=== PATIENT | male | born 1995 | race Caucasian/White ===

== ENCOUNTER 2018-02-10 12:49 | Emergency (ER) | payer OTHER ==
[~2018-02-10] VITALS: Ht 185.4 cm; Wt 92.0 kg
[2018-02-10 12:56] VITALS: TEMP 36.7; Ht 185.4 cm; Wt 92.0 kg
[2018-02-10] MEDS ORDERED: METH1TAB81 PO (13:36)
[2018-02-10] MEDS ORDERED: DEXAMETHASONE SOD INJ 4 MG/ML VIAL IM STA (14:01)
--- NOTE | 2018-02-10 14:05 | EMERGENCY ROOM VISIT NOTE ---
History First contact with patient: 13:48 Chief Complaint: RASH Stated Complaint: SKIN IRRIATATIONS AND BREAKOUTS,ITCHY History of Present Illness The patient is a 22 year old male who presents to the Emergency Room with complaints of a rash that started 3 days ago. It started on his elbows. It has now spread to his thighs and trunk. It is very itchy. The patient called his family doctor at home who prescribed a Medrol Dosepak. He has been taking that and occasionally Benadryl with temporary relief. The rash improved dramatically yesterday. When he woke up this morning, it was back. He did use a different deodorant a few days ago. He has switched back to his original deodorant. No additional new soaps, lotions or detergents. No difficulty breathing or swallowing. No known allergies. Review of Systems 6 system review negative. Please see pertinent positives in the history of present illness section. Past Medical/Surgical History Otherwise healthy Social History Marital Status: single Occupation Status: [employer] student Current/Historical Medications Scheduled Methylprednisolone (Medrol), 20 MG PO QAM Prednisone (Prednisone), 50 MG PO DAILY Ranitidine (Zantac), 150 MG PO BID Physical Exam Vital Signs Date Time Temp Pulse Resp B/P (MAP) Pulse Ox O2 Delivery O2 Flow Rate FiO2 02/10/18 14:47 68 14 145/76 100 02/10/18 12:56 36.7 81 16 159/70 99 Physical Exam VITALS: Vitals are noted on the nurse's note and reviewed by myself. Vital signs stable. GENERAL: 22-year-old male, in no acute distress, nondiaphoretic, well-developed well-nourished. SKIN: Approximately 1 cm, erythematous, blanching, slightly raised lesions particularly on the arms, inner thighs and abdomen HEAD: Normocephalic atraumatic. MOUTH: Mucous membranes moist. No swelling of the oral mucosa tonsils are not enlarged. Pharynx without erythema or exudate. Uvula midline. Airway patent. Tongue does not deviate. NECK: Supple without nuchal rigidity. Trachea midline HEART: Regular rate and rhythm without murmurs gallops or rubs. LUNGS: Clear to auscultation bilaterally without wheezes, rales or rhonchi. No accessory muscle use. MUSCULOSKELETAL: No muscle atrophy, erythema, or edema noted. Strength 5/5 throughout. NEURO: Patient was alert and oriented to person place and time. Normal sensation to touch. No focal neurological deficits. Medical Decision & Procedures Medications Administered Medications (Trade) Dose Ordered Sig/Luis Felipe Route Start Time Stop Time Status Last Admin Dose Admin Ranitidine HCl (zANTac TAB) 150 mg NOW ONCE PO 02/10/18 14:15 02/10/18 14:16 DC 02/10/18 14:42 150 MG Dexamethasone Sodium Phosphate (Decadron Inj) 10 mg NOW STAT IM 02/10/18 14:01 02/10/18 14:02 DC 02/10/18 14:43 10 MG ED Course The patient was seen and examined He was medicated with Decadron 10 mg IM and Zantac 150 mg p.o. He was observed for approximately half hour Discharge instructions were reviewed, and he was discharged in good condition Medical Decision Differential diagnosis: Allergic reaction, hives, urticaria, anaphylaxis, angioedema, fungal infection This patient is a 22-year-old male that presents to the emergency department complaining of an itchy rash for the last 3 days. He is currently taking a Medrol Dosepak and occasional Benadryl with intermittent relief. On exam, he had diffuse hives. No signs of anaphylaxis. The patient's steroids will be increased. He will continue Benadryl. I also added Zantac. He will follow-up with [facility] next week for recheck, was cautioned on symptoms for which to return to the emergency department. This chart was completed in part utilizing [employer] Speech Voice Recognition software. Attempts were made to minimize the grammatical errors, random word insertions, pronoun errors and incomplete sentences. Any formal questions or concerns about the content, text or information contained within the body of this dictation should be directly addressed to the provider for clarification. Impression Primary Impression: Allergic reaction Departure Information Dispostion Home / Self-Care Condition GOOD Prescriptions Ranitidine (Zantac) 150 Mg Tab 150 MG PO BID for 7 Days, #14 TAB Prov: Gloria Conley PA-C 02/10/18 Prednisone (Prednisone) 50 Mg Tab 50 MG PO DAILY for 4 Days, #4 TAB Prov: Gloria Conley PA-C 02/10/18 Referrals No Doctor, Assigned (PCP) Patient Instructions ED Allergic Reaction General Other, My [facility] Additional Instructions You were evaluated in the emergency department for an itchy rash likely due to an allergic reaction. Please disregard your current prescription of steroid Dosepak Take the new prescription of prednisone as prescribed. Please also take the Zantac prescription as prescribed. Take Benadryl 50 mg every 8 hours for at least the next 24 hours, and then on an as-needed basis for itching Avoid getting overheated as this will make the rash worse Please follow-up with [facility] next week for recheck Please do not hesitate to return to the emergency department with any new, worsening or concerning symptoms; especially, difficulty breathing, swelling of the lips, face, tongue, dizziness or heart racing It was a pleasure participating in your care today. School Instructions Return To School: 1 day
[2018-02-10] MEDS ORDERED: RANITIDINE HCL 150 MG TAB PO ONE (14:15)
[2018-02-10] MEDS ORDERED: RANI150T85 PO (14:26)
[2018-02-10] MEDS ORDERED: PRED50TA PO (14:26)
[2018-02-10 14:47] VITALS: BP 145/76; PULSE 68; O2SAT 100
== END 2018-02-10 14:50 | disposition home or self-care (01) ==
LOC: C.EDB 12:51 → C.EDD 14:50
DX: T78.40XA Allergy, unspecified, initial encounter (principal); X58.XXXA Exposure to other specified factors, initial encounter